=== PATIENT | female | born 1995 | race Two or more races ===

== ENCOUNTER 2025-02-09 16:31 | Emergency (ER) | payer MEDICAID ==
[~2025-02-09] VITALS: Ht 157.5 cm; Wt 84.4 kg
[2025-02-09] MEDS ORDERED: diphenhydrAMINE 50 MG/1 ML VIAL ONE (16:50)
[2025-02-09] MEDS ORDERED: EPINEPHRINE-PF 1:1000 1 MG/ML AMPUL/VIAL ONE (16:51)
[2025-02-09] MEDS ORDERED: FAMOTIDINE. 20 MG/2 ML VIAL IV ONE (16:56)
[2025-02-09] MEDS: diphenhydrAMINE 50 MG/1 ML VIAL IV ONE (17:04)
[2025-02-09] MEDS: FAMOTIDINE. 20 MG/2 ML VIAL IV ONE (17:04)
[2025-02-09] MEDS: EPINEPHRINE-PF 1:1000 1 MG/ML AMPUL/VIAL SQ ONE (17:04)
[2025-02-09] MEDS: IV NORMAL SALINE 1000 ML BAG IV ONE (17:30)
[2025-02-09] MEDS ORDERED: EPIN0.3P3 IM (17:44)
[2025-02-09] MEDS ORDERED: PRED20TA PO (17:44)
[2025-02-09] MEDS ORDERED: DIPH25TA62 PO (18:49)
[2025-02-09 21:08] VITALS: BP 140/78; TEMP 98; O2SAT 98
== END 2025-02-09 20:30 | disposition home or self-care (01) ==
LOC: ER 16:44
DX: T78.3XXA Angioneurotic edema, initial encounter (principal); R21 Rash and other nonspecific skin eruption; R07.9 Chest pain, unspecified; F41.9 Anxiety disorder, unspecified; Z60.2 Problems related to living alone; Z79.52 Long term (current) use of systemic steroids; Y84.8 Other medical procedures as the cause of abnormal reaction of the patient, or of later complication, without mention of misadventure at the time of the procedure; Y82.8 Other medical devices associated with adverse incidents; Y92.89 Other specified places as the place of occurrence of the external cause
CPT/HCPCS: 99284; 96374; 96375; 96361; 93005; 96372; J2919; J1200; J0169; J1308; J7040; A4606; A4663